=== PATIENT | male | born 1970 | race Caucasian/White ===

== ENCOUNTER 2024-01-15 06:29 | Emergency (ER) | payer SELFPAY ==
[2024-01-15 06:30] VITALS: BP 144/88; PULSE 44; RESP 16; TEMP 36.4; O2SAT 96; BMI 30.8
--- NOTE | 2024-01-15 06:43 | EDS_ITS ---
HPI History of Present Illness Chief Complaint: Flank Pain Informant: patient and spouse/S.O. Narrative Narrative: 53-year-old male presenting to the emergency department right lower quadrant abdominal pain. Patient states that last Thursday night he went to [facility] where he was diagnosed with a 5 mm distal ureteral stone. He states he returned there on Thursday with continued pain. He took a oxycodone on Thursday which helped his pain. He states that during last night he developed severe sharp stabbing pain again. He states that the oxycodone did not help his pain. He has never had any prior abdominal surgeries takes no other medications besides the pain medicine and Zofran that he was prescribed. He denies any fever dysuria hematuria. States he has been constipated past couple days. Using online resources [employer] I was able to review the radiologist CT report from 08 January 2024 and the ED dictation from 12 January 2024 [facility] Medical History no medical history Home Medications ?Medication ?Instructions ?Recorded ?Last Taken ?Type NK 01/15/24 Unknown History Allergy/AdvReac Type Severity Reaction Status Date / Time Penicillins Allergy Rash Verified 01/15/24 06:30 Family History no significant family his Surgical History no surgical history Social History Smoking Status: Former smoker ROS ROS ED Constitutional Constitutional ED: Denies chills, fever(s) or weight loss Eyes Eyes: Denies change in vision or diplopia ENT ENT ED: Denies ear pain, rhinorrhea or sore throat Cardiovascular Cardiovascular: Denies chest pain, orthopnea, palpitations or racing heartbeat Respiratory/Chest Respiratory/Chest: Denies cough, dyspnea or orthopnea Gastrointestinal Gastrointestinal: Reports abdominal pain, constipation and nausea; Denies diarrhea or vomiting Genitourinary Genitourinary ED: Denies dysuria, hematuria or urinary frequency Musculoskeletal Musculoskeletal: Denies arthralgias or myalgias Integumentary Denies abscess or rash Neurologic Neurologic: Denies headache(s) or weakness Psychiatric Psychiatric: Denies anxiety, depression, suicidal ideation or suicidal thoughts Endocrine Endocrinology: Denies polydipsia, polyphagia or polyuria Allergic/Immunologic Allergic/Immunologic ED: Denies mouth swelling, tongue swelling or urticaria EXAM Physical Exam Narrative Exam Narrative: Patient appears very uncomfortable holding his abdomen. Const Vital Signs: 01/15/24 06:30 Temperature 97.5 F L Temperature Source Oral Pulse Rate 44 L Respiratory Rate 16 Blood Pressure 144/88 H Blood Pressure Mean 106 Pulse Ox 96 Oxygen Delivery Method Room Air Positive well nourished and well developed General Appearance ED: well developed HEENT Reports normocephalic, head/scalp atraumatic and moist mucous membranes Eyes PERRL and EOMs intact bilaterally Neck no lymphadenopathy, supple and no JVD Resp normal respiratory effort and clear to auscultation bilaterally Cardio regular rate, regular rhythm and no murmurs GI Inspection: Negative for abdominal distention Auscultation: normoactive bowel sounds Palpation: tender RLQ and guarding Back/Spine no CVA tenderness and normal ROM Extremity normal to inspection General Extremety ED: Negative for edema General Extremity: Negative for edema Neuro oriented x3 and CN's II-XII intact bilaterally Sensorium / Orientation: alert Motor Exam: strength 5/5 throughout Psych mental status grossly normal Mood & Affect: Negative for depressed or tearful Skin no rashes or lesions noted and no wounds MDM MDM MDM Narrative Medical decision making narrative: Differential diagnosis includes but not limited to kidney stone acute kidney injury UTI pyelonephritis appendicitis colitis diverticulitis diverticular abscess White count 14.3 hemoglobin 15.3 plate count 259. Creatinine 1.24 glucose 147. Patient received Toradol morphine and Zofran. His pain was significantly improved. CT of the abdomen pelvis without contrast was obtained. Upon my review there is a 5 mm stone entering the bladder. At the time of this dictation the formal read by radiology and urinalysis is still pending. Will wait for these results and reassess the patient. Care of the patient will be turned over to the daytime physician Dr. Vega. History & Record Review Discussion w/independent historian: Patient and Significant other Additional record(s) reviewed:: Prior ED visit and Prior labs Lab Data Attestation: I reviewed the patient's lab results. Labs: Laboratory Results - last 24 hr 01/15/24 06:49 WBC 14.3 H RBC 4.58 L Hgb 15.3 Hct 44.1 MCV 96.3 H MCH 33.4 H MCHC 34.7 RDW Std Deviation 43.3 RDW Coeff of Thomas 12.2 Plt Count 259 MPV 9.7 Immature Gran % (Auto) 0.500 Neut % (Auto) 79.5 H Lymph % (Auto) 13.3 L [place] % (Auto) 5.5 Eos % (Auto) 0.6 Baso % (Auto) 0.6 Absolute Neuts (auto) 11.3 H Absolute Lymphs (auto) 1.90 Nucleated RBC % 0 Sodium 140 Potassium 4.6 Chloride 108 H Carbon Dioxide 28.0 Anion Gap 5 BUN 20 H Creatinine 1.24 Estim Creat Clear Calc 78.83 Est GFR (MDRD) Af Amer 78 Est GFR (MDRD) Non-Af 64 BUN/Creatinine Ratio 16.1 Glucose 147 H Calcium 9.5 Discharge Plan Triage Chief Complaint: Flank Pain ED Provider: Alex Garcia Dx/Rx/DC Orders Clinical Impression: Kidney stone on right side, Abdominal pain Instructions: ED Kidney Stone with Pain Prescriptions: No Action NK Primary Care Provider: Care Physician,No Primary Referrals: Gustavo Singer MD [Med Staff - Active Staff] - As Needed (for Urology follow up) Care Physician,No Primary [Primary Care Provider] - Print Language: Persian Disposition Disposition: Home, Self Care
[2024-01-15] MEDS: Ketorolac 30 MG/ML Syringe IV (06:49)
[2024-01-15] MEDS: Ondansetron 4 MG/2 ML Vial IV (06:49)
[2024-01-15] MEDS: Morphine 4 MG/ML Syringe IV (06:50)
[2024-01-15 06:57] LABS: Absolute Neutrophil Count 11.3 X10^3/uL (2.0-7.7); Basophil# 0.08 X10^3/uL; Basophil% 0.6 % (0-1); Eosinophil# 0.09 X10^3/uL; Eosinophils% 0.6 % (0-5); Hematocrit 44.1 % (40-54); Hemoglobin 15.3 g/dL (13.0-16.5); Lymphocyte % 13.3 % (19-41); Mean Corp Hgb Conc 34.7 g/dL (32-36); Mean Corpuscular Hgb 33.4 pg (27.0-32.0); Mean Corpuscular Volume 96.3 fL (80-94); Mean Platelet Vol. 9.7 fl (6.2-12.0); Monocyte# 0.79 X10^3/uL; Monocyte% 5.5 % (0-10); NRBC Flagged by Analyzer 0 % (0-5); Neutrophil # 11.33 X10^3/uL (2.7-7.7); Neutrophil % 79.5 % (47-70); Platelet Count 259 K/mm3 (150-450); RBC Distribution Width CV 12.2 % (11.6-14.6); RBC Distribution Width SD 43.3 fl (35.1-43.9); Red Blood Count 4.58 M/mm3 (4.6-6.2); White Blood Count 14.3 K/mm3 (4.4-11.0)
--- NOTE | 2024-01-15 07:04 | CT_ITS ---
STUDY: CT ABDOMEN AND PELVIS WITHOUT CONTRAST REASON FOR EXAM: Male, 53 years old. RLQ Pain. known kidney stone RADIATION DOSAGE (If Supplied By Facility): CTDIvol = ( 10.82 ) mGy, DLP = ( 621.53 ) mGycm TECHNIQUE: Transaxial images were obtained from the dome of the diaphragm to the symphysis pubis without oral contrast, and without intravenous contrast. Sagittal and coronal images were reconstructed. Individualized dose optimization techniques were used for this CT. COMPARISON: None. FINDINGS: The visualized lung bases are unremarkable. The visualized portions of the heart are within normal limits. Normal liver. Normal gallbladder and extrahepatic biliary system. Normal spleen. Normal pancreas. Normal bilateral adrenal glands. Mild degree of right hydronephrosis and right hydroureter down to the bladder. There is a 2 mm calculus at the base of the bladder just distal to the right ureterovesical junction most likely representing a recently passed right ureteral calculus. Mild degree of right perinephric stranding. 2 mm nodule obstructive calculus in the upper pole calyx of the left kidney. There is a small hiatal hernia. Normal small intestine. There are scattered colonic diverticula consistent with diverticulosis. The appendix is visualized and appears normal. Normal abdominal aorta. Normal inferior vena cava. Normal retroperitoneum. Normal urinary bladder. Normal abdominal wall. Normal osseous structures. CT/Abdomen/Pelvis without Cont IMPRESSION: Findings suggestive of a recently passed right ureteral calculus. The calculus is at the base of the bladder on the right side. Nonobstructive tiny left intrarenal calculus. Electronically Signed: Jerson Jain MD at 7:44 EST ,
[2024-01-15 07:10] LABS: Anion Gap 5 (5-15); BUN 20 mg/dL (7-18); BUN/Creat Ratio 16.1 RATIO (10-20); Calcium,Total 9.5 mg/dL (8.5-10.1); Chloride 108 mmol/L (98-107); Creatinine, Serum 1.24 mg/dL (0.70-1.30); EST Glomerular Filtration Rate 64 mL/min (>60); Est Glom Filt Rate - Afr Amer 78 mL/min (>60); Estimated Creatinine Clearance 78.83 ml/min; Glucose 147 mg/dL (74-106); Potassium 4.6 mmol/L (3.5-5.1); Sodium Level 140 mmol/L (136-145)
[2024-01-15 08:10] LABS: Squamous Epithelial Cells - UA 0 SEEN /hpf (0-5)
[2024-01-15 08:30] VITALS: BP 112/81; PULSE 48; RESP 16; O2SAT 97
[2024-01-15 08:38] LABS: Color, Urine Yellow (Yellow); Glucose, Dipstick Normal (Normal); Ketone-Dipstick Negative (Negative); Leukocyte Esterase-Dipstick Negative /ul (Negative); Nitrite-Dipstick Negative (Negative); Occult Blood-Urine 50 /ul (Negative); Protein-Dipstick 15 mg/dl (Negative); Specific Gravity, Urine 1.025 (1.002-1.030); Urine Bilirubin Dipstick Negative (Negative); Urine Clarity Clear (Clear); Urine Urobilinogen Normal (Normal)
[2024-01-15 08:55] LABS: Bacteria 2+ /hpf (None Seen); Mucous, Urine 1+ /hpf (<or=2+); Red Blood Cells-Urine 5-10 SEEN /hpf (0-5); White Blood Cells 0-5 SEEN /hpf (0-5)
== END 2024-01-15 09:06 | disposition home or self-care (01) ==
PROVIDERS: Emergency Provider Emergency Medicine; Visit Provider Emergency Medicine
DX: N20.0 Calculus of kidney (principal); Z87.891 Personal history of nicotine dependence
CPT/HCPCS: 74176; 80048; 81001; 85025; 96374; 96375; 96376; 99283; A4216; J2405